=== PATIENT | male | born 1985 | race Caucasian/White ===

== ENCOUNTER → 2016-11-22 | Outpatient (CLI) | payer OTHER ==
--- NOTE | 2016-11-23 01:30 | REP ---
Clinical: Trauma. Pain. Technique: AP, lateral views of the right forearm. Findings: There is a nondisplaced radial head fracture extending through the metaphysis. Overlying soft tissue swelling and joint effusion noted. Impression: Nondisplaced fracture of the radial head through the proximal metaphysis. Overlying soft tissue swelling and effusion. Signed by Agustin Blank MD 11/23/2016 01:21 A
--- NOTE | 2016-11-23 01:32 | REP ---
Clinical: Pain. Recent trauma. Technique: AP and lateral views of the right humerus. Findings: Humerus is intact. There is an acute nondisplaced fracture involving the radial head with overlying soft tissue swelling and effusion at the elbow joint. Impression: Nondisplaced radial head fracture with overlying swelling and effusion. Signed by Agustin Blank MD 11/23/2016 01:23 A
== END ==
LOC: M WUC 17:54
PROVIDERS: ATTEND Physician Assistant
DX: S52.124A Nondisplaced fracture of head of right radius, initial encounter for closed fracture (principal); X58.XXXA Exposure to other specified factors, initial encounter; Y92.9 Unspecified place or not applicable; Y93.9 Activity, unspecified; Y99.9 Unspecified external cause status

== ENCOUNTER 2017-09-09 11:30 | Emergency (ER) | payer OTHER | END 2017-09-09 12:25 | disposition home or self-care (01) | LOC: M ED 11:30 | DX: K42.0 Umbilical hernia with obstruction, without gangrene (principal); R03.0 Elevated blood-pressure reading, without diagnosis of hypertension; R11.0 Nausea; E78.00 Pure hypercholesterolemia, unspecified; Z87.891 Personal history of nicotine dependence | CPT/HCPCS: 99282 ==